=== PATIENT | male | born 1970 | race Caucasian/White ===

== ENCOUNTER → 2017-07-27 | Outpatient (CLI) | payer OTHER ==
[2017-07-27 17:28] LABS: BASOPHILS # (AUTO) 0.1 (0.0-0.1); BASOPHILS % 0.8 % (0.0-1.0); EOSINOPHILS % 0.1 % (0.0-6.0); HEMATOCRIT 36.8 % (38.2-49.6); HEMOGLOBIN 12.6 g/dL (14.0-18.0); LYMPHOCYTES # (AUTO) 1.2 (1.0-3.2); MEAN CORPUSCULAR HEMOGLOBIN 33.2 pg (28-32); MEAN CORPUSCULAR HGB CONC 34.2 g/dL (31-35); MEAN CORPUSCULAR VOLUME 97.1 fL (81-99); MONOCYTES # (AUTO) 1.4 (0.2-0.8); MONOCYTES % 18.6 % (4.4-11.3); NEUTROPHILS # (AUTO) 4.7 (2.1-6.9); NEUTROPHILS % 64.2 % (38.7-80.0); PLATELET COUNT 268 x10e3/uL (140-360); RED BLOOD COUNT 3.79 x10e6/uL (4.3-5.7); RED CELL DISTRIBUTION WIDTH 11.6 % (11.7-14.4)
== END ==
LOC: NPA 11:30
PROVIDERS: ATTEND Internal Medicine Pulmonary Disease
DX: Z02.89 Encounter for other administrative examinations (principal)
CPT/HCPCS: 36415; 85025

== ENCOUNTER 2024-02-22 13:21 | Inpatient (IN) | payer MEDICARE, OTHER ==
[~2024-02-22] VITALS: Ht 181.6 cm; Wt 122.9 kg
[2024-02-22] MEDS: CEFEPIME 2 GM in SODIUM CHLORIDE 0.9% 100 ML IV SCH (14:00)
[2024-02-22] MEDS ORDERED: SODIUM CHLORIDE 0.9% 100 ML ONE (14:53)
[2024-02-22 15:01] VITALS: PULSE 69; RESP 18; TEMP 98.6
[2024-02-22] MEDS: Vancomycin IV 1 GM in SODIUM CHLORIDE 0.9% 250ML 250 ML IV SCH (15:02)
[2024-02-22] MEDS ORDERED: ONDANSETRON HCL INJ 2MG/ML 2ML 2 MG/ML VIAL IV PRN (16:00)
[2024-02-22] MEDS ORDERED: SODIUM CHLORIDE FLUSH 10 ML SYR INJ PRN (16:00)
[2024-02-22] MEDS ORDERED: ATORVASTATIN CA20 MG PO (16:39)
[2024-02-22] MEDS ORDERED: OMEPRAZOLE40 MG PO (16:39)
[2024-02-22] MEDS ORDERED: ARIPIPRAZOLE10 MG (16:39)
[2024-02-22] MEDS ORDERED: TYLENOL325 MG PO (16:39)
[2024-02-22] MEDS ORDERED: FLOMAX0.4 MG PO (16:39)
[2024-02-22] MEDS ORDERED: MELATONIN TR 51 EACH (16:39)
[2024-02-22] MEDS ORDERED: TRAZODONE HCL50 MG PO (16:39)
[2024-02-22] MEDS ORDERED: TOPIRAMATE25 MG PO (16:39)
[2024-02-22] MEDS ORDERED: FINASTERIDE5 MG PO (16:39)
[2024-02-22] MEDS ORDERED: MEMANTINE HCL10 MG (16:39)
[2024-02-22] MEDS ORDERED: DERMAFIX113 GM (16:39)
[2024-02-22] MEDS ORDERED: ZETIA10 MG PO (16:39)
[2024-02-22] MEDS ORDERED: DEPAKOTE ER500 MG PO (16:39)
[2024-02-22] MEDS ORDERED: SERTRALINE HCL100 MG PO (16:39)
[2024-02-22] MEDS ORDERED: ASPIRIN EC81 MG PO (16:39)
[2024-02-22] MEDS ORDERED: FUROSEMIDE40 MG PO (16:39)
[2024-02-22] MEDS ORDERED: ARICEPT5 MG PO (16:41)
[2024-02-22] MEDS ORDERED: MELATONIN3 MG PO (16:41)
[2024-02-22 17:29] VITALS: BP 156/80; PULSE 74; RESP 18; TEMP 98.2; O2SAT 100
[2024-02-22 17:44] VITALS: BP 156/80; PULSE 74; RESP 18; TEMP 98.2; O2SAT 100
[2024-02-22 17:50] VITALS: BP 156/80; PULSE 74; RESP 18; TEMP 98.2; O2SAT 100
[2024-02-22] MEDS ORDERED: ULTRAM 50MG50 MG PO (18:11)
[2024-02-22] MEDS ORDERED: ACETAMINOPHEN 325 MG TAB PO PRN (19:00)
[2024-02-22] MEDS ORDERED: METOPROLOL TARTRATE INJ 1 MG/ML VIAL IV PRN (19:00)
[2024-02-22] MEDS ORDERED: MEMANTINE 10 MG TAB PO SCH (19:00)
[2024-02-22] MEDS ORDERED: TOPIRAMATE 25 MG TAB PO SCH (19:00)
[2024-02-22] MEDS ORDERED: MELATONIN 3 MG TAB PO PRN (19:00)
[2024-02-22] MEDS ORDERED: SIMETHICONE 80 MG CHEW PO PRN (19:00)
[2024-02-22] MEDS ORDERED: DEPAKOTE DELAYED-RELEASE TAB 500 MG PO SCH (19:00)
[2024-02-22] MEDS ORDERED: DOCUSATE SODIUM 100 MG CAP PO PRN (19:00)
[2024-02-22] MEDS ORDERED: ALBUTEROL/IPRATROPIUM 3 ML NEB NEB PRN (19:00)
[2024-02-22] MEDS ORDERED: LORAZEPAM INJ 2 MG/ML VIAL IV PRN (19:00)
[2024-02-22 20:00] VITALS: BP 146/80; PULSE 76; RESP 18; TEMP 98.1; O2SAT 99
[2024-02-22] MEDS: DEPAKOTE DELAYED-RELEASE TAB 500 MG PO SCH (20:33)
[2024-02-22] MEDS: MEMANTINE 10 MG TAB PO SCH (20:34)
[2024-02-22] MEDS: ATORVASTATIN 20 MG TAB PO SCH (20:34)
[2024-02-22] MEDS: DONEPEZIL HCL 5 MG TAB PO SCH (20:35)
[2024-02-22] MEDS: TOPIRAMATE 25 MG TAB PO SCH (20:36)
[2024-02-22] MEDS: SERTRALINE HCL 100 MG TAB PO SCH (20:42)
[2024-02-22] MEDS: KETOROLAC TROMETHAMINE 30 MG/ML VIAL IV PRN (20:44)
[2024-02-22] MEDS ORDERED: TRAZODONE HCL 50 MG TAB PO SCH (21:00)
[2024-02-22] MEDS: TRAZODONE HCL 50 MG TAB PO SCH (21:45)
[2024-02-23] VITALS (7 sets, daily range): BP systolic 105–146; BP diastolic 69–80; PULSE 61–83; RESP 18–19; TEMP 97.5–98.2; O2SAT 98–100
[2024-02-23 05:11] LABS: BASOPHILS # (AUTO) 0.1 (0.0-0.1); BASOPHILS % 0.8 % (0.0-1.0); EOSINOPHILS # (AUTO) 0.2 (0.0-0.4); EOSINOPHILS % 2.8 % (0.0-6.0); HEMATOCRIT 39.1 % (38.2-49.6); HEMOGLOBIN 12.3 g/dL (14.0-18.0); LYMPHOCYTES # (AUTO) 3.1 (1.0-3.2); LYMPHOCYTES % 39.2 % (18.0-39.1); MEAN CORPUSCULAR HEMOGLOBIN 30.8 pg (28-32); MEAN CORPUSCULAR HGB CONC 31.5 g/dL (31-35); MEAN CORPUSCULAR VOLUME 97.8 fL (81-99); MONOCYTES # (AUTO) 0.8 (0.2-0.8); NEUTROPHILS # (AUTO) 3.7 (2.1-6.9); NEUTROPHILS % 46.9 % (38.7-80.0); PLATELET COUNT 171 x10e3/uL (140-360); RED CELL DISTRIBUTION WIDTH 13.6 % (11.7-14.4)
[2024-02-23 05:29] LABS: ANION GAP 12.4 mmol/L (8-16); CALCIUM 8.7 mg/dL (8.4-10.2); CREATININE, SERUM 0.79 mg/dL (0.72-1.25); MAGNESIUM 1.7 MG/DL (1.3-2.1); PHOSPHORUS 3.7 MG/DL (2.3-4.7)
[2024-02-23 05:56] LABS: POTASSIUM 3.4 mmol/L (3.5-5.1)
[2024-02-23] MEDS: SODIUM BICARBONATE 650 MG TAB PO SCH (06:51)
[2024-02-23] MEDS: EZETIMIBE 10 MG TAB PO SCH (09:54)
[2024-02-23] MEDS: FINASTERIDE 5 MG TAB PO SCH (09:54)
[2024-02-23] MEDS: TAMSULOSIN HCL 0.4 MG CAP PO SCH (09:54)
[2024-02-23] MEDS: PANTOPRAZOLE SOD 40 MG TABEC PO SCH (09:55)
[2024-02-23] MEDS: ASPIRIN 81 MG ENTERIC COATED PO SCH (09:55)
[2024-02-24] VITALS (7 sets, daily range): BP systolic 98–151; BP diastolic 61–77; PULSE 59–70; RESP 16–18; TEMP 97.5–98.3; O2SAT 99–100
[2024-02-24 05:30] LABS: BASOPHILS # (AUTO) 0.1 (0.0-0.1); BASOPHILS % 0.7 % (0.0-1.0); EOSINOPHILS # (AUTO) 0.2 (0.0-0.4); HEMATOCRIT 40.9 % (38.2-49.6); HEMOGLOBIN 13.1 g/dL (14.0-18.0); LYMPHOCYTES # (AUTO) 2.4 (1.0-3.2); LYMPHOCYTES % 34.6 % (18.0-39.1); MEAN CORPUSCULAR HEMOGLOBIN 30.8 pg (28-32); MONOCYTES # (AUTO) 0.9 (0.2-0.8); NEUTROPHILS # (AUTO) 3.4 (2.1-6.9); NEUTROPHILS % 48.4 % (38.7-80.0); PLATELET COUNT 182 x10e3/uL (140-360); RED BLOOD COUNT 4.26 x10e6/uL (4.3-5.7); RED CELL DISTRIBUTION WIDTH 13.5 % (11.7-14.4)
[2024-02-24 06:03] LABS: ANION GAP 9.7 mmol/L (8-16); CALCIUM 8.9 mg/dL (8.4-10.2); CREATININE, SERUM 0.76 mg/dL (0.72-1.25); PHOSPHORUS 3.1 MG/DL (2.3-4.7); POTASSIUM 3.7 mmol/L (3.5-5.1)
[2024-02-24] MEDS: Doxycycline IV 100 MG in SODIUM CHLORIDE 0.9% 100 ML IV SCH (10:18)
[2024-02-25] VITALS: BP 125/71; PULSE 53; RESP 20; TEMP 97.9; O2SAT 98
[2024-02-25 04:00] VITALS: BP 114/60; PULSE 62; RESP 18; TEMP 97.8; O2SAT 96
[2024-02-25 08:50] VITALS: BP 112/65; PULSE 63; RESP 20; TEMP 97.7; O2SAT 100
[2024-02-25] MEDS ORDERED: DOXYCYCLINE HY100 MG PO (10:19)
[2024-02-25] MEDS ORDERED: CEPHALEXIN500 MG PO (10:19)
[2024-02-25 10:33] VITALS: BP 112/65; PULSE 63; RESP 20; TEMP 97.7; O2SAT 100
[2024-02-25 12:51] VITALS: BP 114/70; PULSE 64; RESP 20; TEMP 97.9; O2SAT 98
== END 2024-02-25 13:40 | disposition home or self-care (01) | DRG 602 ==
LOC: FSED 13:28 → ERHOLD 15:51 → MED/SURG2 17:13
PROVIDERS: ADMIT Internal Medicine; ATTEND Internal Medicine
DX: L03.116 Cellulitis of left lower limb (principal); G93.41 Metabolic encephalopathy; F23 Brief psychotic disorder; F03.92 Unspecified dementia, unspecified severity, with psychotic disturbance; I69.398 Other sequelae of cerebral infarction; H47.619 Cortical blindness, unspecified side of brain; F09 Unspecified mental disorder due to known physiological condition; N40.0 Benign prostatic hyperplasia without lower urinary tract symptoms; I10 Essential (primary) hypertension; E78.5 Hyperlipidemia, unspecified; M54.9 Dorsalgia, unspecified; E66.9 Obesity, unspecified; E73.9 Lactose intolerance, unspecified; Z90.49 Acquired absence of other specified parts of digestive tract; Z87.891 Personal history of nicotine dependence
CPT/HCPCS: 36415; 70450; 71046; 80048; 80076; 81003; 82948; 83735; 84100; 85025; 99252; 99284; J0692; J1885; J7050

== ENCOUNTER 2024-07-11 17:43 | Emergency (ER) | payer MEDICARE, OTHER ==
[~2024-07-11] VITALS: Ht 181.6 cm; Wt 122.9 kg
[~2024-07-11 17:43] MED LIST: ARICEPT5 MG PO; ARIPIPRAZOLE10 MG; ASPIRIN EC81 MG PO; ATORVASTATIN CA20 MG PO; CEPHALEXIN500 MG PO; DEPAKOTE ER500 MG PO; DERMAFIX113 GM; DOXYCYCLINE HY100 MG PO; FINASTERIDE5 MG PO; FLOMAX0.4 MG PO; FUROSEMIDE40 MG PO; MELATONIN TR 51 EACH; MELATONIN3 MG PO; MEMANTINE HCL10 MG; OMEPRAZOLE40 MG PO; SERTRALINE HCL100 MG PO; TOPIRAMATE25 MG PO; TRAZODONE HCL50 MG PO; TYLENOL325 MG PO; ULTRAM 50MG50 MG PO; ZETIA10 MG PO
[2024-07-11 17:58] VITALS: TEMP 98
[2024-07-11] MEDS: PREDNISONE 20 MG TAB PO STA (19:17)
[2024-07-11] MEDS: FAMOTIDINE 20 MG TAB PO ONE (19:17)
[2024-07-11] MEDS: DIPHENHYDRAMINE HCL 25 MG CAP PO ONE (19:17)
[2024-07-11 20:13] VITALS: PULSE 74; RESP 18
[2024-07-11 22:48] VITALS: BP 110/75; PULSE 74; RESP 18; TEMP 98.3; O2SAT 98
== END 2024-07-11 21:54 | disposition home or self-care (01) ==
LOC: ER 18:02
DX: R42 Dizziness and giddiness (principal); T78.1XXA Other adverse food reactions, not elsewhere classified, initial encounter; I10 Essential (primary) hypertension; E78.5 Hyperlipidemia, unspecified; M54.9 Dorsalgia, unspecified; G89.29 Other chronic pain; E66.9 Obesity, unspecified; Z86.73 Personal history of transient ischemic attack (TIA), and cerebral infarction without residual deficits
CPT/HCPCS: 99284; J7512

== ENCOUNTER 2024-10-20 18:04 | Emergency (ER) | payer MEDICARE, OTHER ==
[~2024-10-20] VITALS: Ht 181.6 cm; Wt 122.9 kg
[2024-10-20 18:23] VITALS: TEMP 98.5
[2024-10-20] MEDS: DIPHENHYDRAMINE HCL 25 MG CAP PO STA (18:35)
[2024-10-20] MEDS: PREDNISONE 20 MG TAB PO STA (18:35)
[2024-10-20] MEDS: FAMOTIDINE 20 MG TAB PO STA (18:35)
[2024-10-20 20:17] VITALS: PULSE 81; RESP 18; O2SAT 96
== END 2024-10-20 21:17 | disposition home or self-care (01) ==
LOC: ER 18:10
DX: R06.02 Shortness of breath (principal); T78.40XA Allergy, unspecified, initial encounter; F41.9 Anxiety disorder, unspecified; I10 Essential (primary) hypertension; E78.5 Hyperlipidemia, unspecified; E66.9 Obesity, unspecified; M54.9 Dorsalgia, unspecified; G89.29 Other chronic pain
CPT/HCPCS: 99283; J7512